=== PATIENT | female | born 1945 | race Caucasian/White ===

== ENCOUNTER 2018-07-30 12:29 | Emergency (ER) | payer MEDICARE ==
[~2018-07-30] VITALS: Ht 162.6 cm; Wt 82.1 kg
[~2018-07-30 12:29] MED LIST: ACETAMINOPHEN325 M1 PO; ASPIR 8181 MG PO; BUPROPION XL150 MG PO; FISH OIL 1,0001 EAC2 PO; METOPROLOL TART50 MG PO; PROAIR HFA INH8.5 GM PO; VITAMIN D32000 UNIT PO
--- NOTE | 2018-07-30 13:20 | NUR ---
EXTENSIVE D/C TEACHING AND LEG BAG ON AND GIVEN NOGUERA BAG TO CHANGE INTO AT NIGHT WITH TEACHING AND VERBAL UNDERSTANDING.
--- NOTE | 2018-07-30 13:44 | NUR ---
+HYPOTENTION WITH DIZZINESS AT DISCHARGE ONCE UP; PT LAID BACK INTO STRETCHER BED ON MONITORS, MD AT BEDSIDE. PT WILL BE MONITORED PER MD ORDERS.
--- NOTE | 2018-07-30 14:12 | NUR ---
bp improving, dizziness resolved. tolerating po fluids. md aware. pt states headache. ok per md to give tylenol.
[2018-07-30] MEDS ORDERED: ACETAMINOPHEN 325 MG TAB PO ONE (14:15)
== END 2018-07-30 14:52 | disposition home or self-care (01) ==
LOC: FSED 12:29
DX: Z46.6 Encounter for fitting and adjustment of urinary device (principal); R33.9 Retention of urine, unspecified
CPT/HCPCS: 51700; 93005; 99284

== ENCOUNTER 2018-08-09 20:59 | Emergency (ER) | payer MEDICARE ==
[~2018-08-09] VITALS: Ht 162.6 cm; Wt 82.1 kg
== END 2018-08-09 21:49 | disposition home or self-care (01) ==
LOC: FSED 20:59
DX: R33.9 Retention of urine, unspecified (principal)
CPT/HCPCS: 51700; 99282

== ENCOUNTER → 2020-04-17 | Outpatient (CLI) | payer MEDICARE ==
--- NOTE | 2020-04-17 13:55 | Diagnostic Imaging Report ---
EXAM: BONE MINERAL DENSITY HISTORY: Disorder of bone, unspecified COMPARISON: Bone density evaluation 05/20/2017 and 10/24/2014 DISCUSSION: Evaluation of the left hip and lumbar spine was performed utilizing DEXA Hologic bone densitometer. The study is technically adequate. The patient's fracture risk is compared to an age-matched control. The patient denies prior surgery/fracture of the spine, hips or forearm. Left hip femoral neck bone mineral density: 0.758 g/cm2, T-score is -0.8, Z-score is 1.3. Left hip total bone mineral density: 0.8 g/cm2, T-score is -1.2, Z-score is 0.7. Total left hip bone mineral density has decreased by -7.6% compared to baseline, which is statistically significant. Lumbar spine total bone mineral density: 0.937 gm/cm2, T-score is -1, Z-score is 1.5. Total lumbar spine bone mineral density has increased by 2.2% compared to baseline, which is not statistically significant. Impression: Bone mineralization by WHO Classification is osteopenia, the fracture risk is increased. World Health Organization Fracture Risk Assessment Tool estimates 10 year fracture risk of 24% for major osteoporotic fracture and 13% for hip fracture. Fracture probability calculated for an untreated patient and probability may be lower if patient has received treatment. Signed by: Dr. Milo Moulton M.D. on 04/17/2020 1:51 PM
== END ==
LOC: MAMMO 12:41
PROVIDERS: ATTEND Internal Medicine
DX: Z12.31 Encounter for screening mammogram for malignant neoplasm of breast (principal); M85.88 Other specified disorders of bone density and structure, other site
CPT/HCPCS: 77067; 77080

== ENCOUNTER 2024-08-11 14:00 | Emergency (ER) | payer MEDICARE ==
[~2024-08-11] VITALS: Ht 160 cm; Wt 74.8 kg
[~2024-08-11 14:00] MED LIST changes: +GUAIFENESIN-CO118 ML PO; +IPRAT-ALBUT 0.5-3 ML INH; +PREDNISONE20 MG PO
[2024-08-11 14:12] VITALS: PULSE 70; RESP 18; TEMP 97.9; O2SAT 99
[2024-08-11] MEDS ORDERED: CEPHALEXIN500 MG PO (14:18)
== END 2024-08-11 14:25 | disposition home or self-care (01) ==
LOC: FSED 14:05
DX: L03.113 Cellulitis of right upper limb (principal); T50.B95A Adverse effect of other viral vaccines, initial encounter; I10 Essential (primary) hypertension; J44.9 Chronic obstructive pulmonary disease, unspecified
CPT/HCPCS: 99282

== ENCOUNTER → 2024-09-08 | Outpatient (REF) | payer MEDICARE ==
[~2024-09-08] MED LIST changes: +CEPHALEXIN500 MG PO
== END ==
LOC: RAD 10:20
PROVIDERS: ATTEND Internal Medicine
DX: J18.9 Pneumonia, unspecified organism (principal)
CPT/HCPCS: 71046

== ENCOUNTER 2024-09-21 09:31 | Emergency (ER) | payer MEDICARE ==
[~2024-09-21] VITALS: Ht 160 cm; Wt 72.3 kg
[2024-09-21] MEDS ORDERED: SODIUM CHLORIDE 0.9% 1000ML 1,000 ML ONE (10:34)
[2024-09-21] MEDS ORDERED: KETOROLAC TROMETHAMINE 30 MG/ML VIAL ONE (10:34)
[2024-09-21] MEDS: KETOROLAC TROMETHAMINE 30 MG/ML VIAL IV STA (10:44)
[2024-09-21] MEDS: SODIUM CHLORIDE 0.9% 1000ML 1,000 ML IV SCH (10:44)
[2024-09-21] MEDS: DEXAMETHASONE SOD PHOS INJ 4 MG/ML SDV IV ONE (12:34)
[2024-09-21 12:38] VITALS: PULSE 76; RESP 16; TEMP 97.9; O2SAT 94
[2024-09-21] MEDS ORDERED: IOPAMIDOL 370 MG/ML 100 ML INFUS..BTL INJ ONE (14:36)
== END 2024-09-21 12:40 | disposition home or self-care (01) ==
LOC: FSED 09:44
DX: R10.12 Left upper quadrant pain (principal); K57.90 Diverticulosis of intestine, part unspecified, without perforation or abscess without bleeding; M54.9 Dorsalgia, unspecified; K59.00 Constipation, unspecified; I10 Essential (primary) hypertension; J44.9 Chronic obstructive pulmonary disease, unspecified; N32.89 Other specified disorders of bladder; K44.9 Diaphragmatic hernia without obstruction or gangrene; F17.210 Nicotine dependence, cigarettes, uncomplicated
CPT/HCPCS: 74177; 80048; 80076; 81003; 82553; 83880; 84484; 85025; 96374; 96375; 99284; J1100; J1885; J7030; Q9967

== ENCOUNTER → 2024-10-09 | Outpatient (REF) | payer MEDICARE ==
[~2024-10-09] MED LIST changes: +IOPAMIDOL 370 MG/ML 100 ML INFUS..BTL INJ ONE
== END ==
LOC: CT 16:06
PROVIDERS: ATTEND Internal Medicine
DX: J20.9 Acute bronchitis, unspecified (principal); J44.89 Other specified chronic obstructive pulmonary disease; F17.210 Nicotine dependence, cigarettes, uncomplicated
CPT/HCPCS: 71260; Q9967